=== PATIENT | male | born 1955 | race Caucasian/White ===

== ENCOUNTER → 2017-03-24 | Outpatient (CLI) | payer BC | END | disposition home or self-care (01) | LOC: GMAJ 16:52 | PROVIDERS: ATTEND Family Medicine | DX: N40.1 Benign prostatic hyperplasia with lower urinary tract symptoms (principal) ==

== ENCOUNTER → 2018-01-07 | Outpatient (CLI) | payer BC | LOC: GMAJ 14:06 | PROVIDERS: ATTEND Family Medicine | DX: R94.5 Abnormal results of liver function studies (principal) ==

== ENCOUNTER → 2018-01-08 | Outpatient (CLI) | payer BC ==
--- NOTE | 2018-01-08 18:22 | US ---
EXAM DESCRIPTION: Liver: ULTRASOUND. CLINICAL HISTORY: ELEVATED LFT COMPARISON: None. TECHNIQUE: Transabdominal scannin-dimensional and Doppler modes. FINDINGS: Gallbladder: No stones or sludge, but multiple echogenic polyps along the gallbladder wall. Largest polyps measuring 10 mm, 7 mm, and 6.1 mm. No fluid around the gallbladder. No wall thickening. 2.1 mm. Non-tender with transducer pressure. Common bile duct: caliber 3.6 mm within normal limits. Liver: Increased echogenicity; contour liver capsule smooth where seen. No fluid around the liver. Anechoic well-defined cyst with posterior acoustic features in the left lobe measuring 1.1 cm and 7.3 mm. Intrahepatic biliary ducts normal caliber. Doppler hepatopedal flow portal vein.. Long axis right lobe 19.5 cm. Pancreas: normal size and echogenicity. Duct not seen. Right kidney: long axis measures 12.5 cm. Normal Echogenicity. Normal cortical thickness. No hydronephrosis IMPRESSION: 1. Polyposis of the gallbladder. With 1 polyp greater than or equal to 1 cm, consider surgical consult. Alternatively, follow-up gallbladder ultrasound in 3 month interval. 2. Mild to moderate hepatomegaly with steatosis. Normal ducts and vascularity. No ascites. Common bile duct nondilated. 3. Normal ultrasound of the pancreas and right kidney. Electronically signed by: Michael Lieberman MD 01/08/2018 6:21 PM CDT
== END ==
LOC: US 07:49
PROVIDERS: ATTEND Family Medicine
DX: R94.5 Abnormal results of liver function studies (principal); K82.4 Cholesterolosis of gallbladder; R16.0 Hepatomegaly, not elsewhere classified; K76.0 Fatty (change of) liver, not elsewhere classified

== ENCOUNTER → 2018-07-06 | Outpatient (CLI) | payer BC | LOC: GMAJ 11:12 | PROVIDERS: ATTEND Family Medicine | DX: Z12.5 Encounter for screening for malignant neoplasm of prostate (principal) ==

== ENCOUNTER 2018-07-08 05:48 | Day surgery (SDC) | payer BC ==
[2018-07-08] MEDS ORDERED: PROPOFOL 200 MG/20 ML VIAL IV ONE (07:00)
[2018-07-08] MEDS ORDERED: PHENYLEPHRINE INJ 1ML 10 MG/ML VIAL ONE (07:00)
[2018-07-08] MEDS ORDERED: SODIUM CHLORIDE 0.9% 50 ML VIAL ONE (07:00)
[2018-07-08] MEDS ORDERED: LIDOCAINE 1% 10 ML VIAL INJ ONE (07:00)
[2018-07-08] MEDS ORDERED: DEXAMETHASONE INJ 10 MG/ML VIAL ONE (07:00)
[2018-07-08] MEDS ORDERED: LACTATED RINGERS 1,000 ML ONE (07:04)
--- NOTE | 2018-07-08 11:42 | OP ---
DATE OF PROCEDURE: 07/08/18 PREPROCEDURE DIAGNOSIS: 1. History of Fragoso's esophagus. 2. History of colonic polyps. Last colonoscopy over five years ago. POSTPROCEDURE DIAGNOSIS: 1. Gastric polyps. 2. Fragoso's esophagus. 3. Colonic polyp. PROCEDURE: 1. Upper endoscopy with biopsy. 2. Colonoscopy with snare polypectomy. SURGEON: Hira Vicente MD. SEDATION: Monitored anesthesia care. ESTIMATED BLOOD LOSS: Less than 5 mL. PROCEDURE: Informed consent was obtained prior to sedation. The preprocedure cardiopulmonary assessment was satisfactory. The patient was brought to the Endoscopy Suite and placed in the left lateral decubitus position. The patient was then sedated by the anesthesia team. The tip of the Olympus EGD scope was inserted into oropharynx and advanced under direct visualization across the cricopharyngeus muscle into the esophageal lumen. In the distal esophagus, there was Fragoso's esophagus. There was salmon-colored mucosa consistent with the patient's known history of Fragoso's esophagus. This ranged from 36 to 41 cm from the incisors. Biopsies were taken with cold forceps in four quadrants from 36, 39 and 41 cm from the incisors and sent for pathology In the stomach, there were multiple small gastric polyps. There was one large sessile polyp about 12 mm in size. Biopsies were taken with cold forceps for histology of this gastric polyp. Retroflexed view of the cardia showed no abnormalities. The endoscope was advanced into the duodenum where the first and second portions were normal. The endoscope was then withdrawn and he was repositioned for colonoscopy. Digital rectal and perianal exams were normal. The tip of the Olympus colonoscope was inserted into the rectum and advanced under direct visualization to the cecum as identified by the presence of the appendiceal orifice and ileocecal valve. Preparation of the colon was good. Upon reaching the cecum, the endoscope was slowly withdrawn. The entire colon was normal until the distal rectum where a 5 mm flat polyp was seen. This polyp was resected with snare polypectomy and sent for pathology. The endoscope was then withdrawn from the patient and the procedure terminated. RECOMMENDATION: 1. Discharge the patient home with escort. 2. Resume regular diet. 3. Continue present medications. 4. Surveillance colonoscopy in five years' time. 5. Followup in my office in two to three months. We may have to repeat the upper endoscopy in [place] for gastric polyp resection if it returns adenomatous. #[id number] MTDD
[2018-07-08 12:06] VITALS: BP 151/98; TEMP 96.3; O2SAT 98
== END 2018-07-08 12:00 | disposition home or self-care (01) ==
LOC: AMB 05:48
PROVIDERS: ATTEND Internal Medicine Gastroenterology
DX: K22.70 Barrett's esophagus without dysplasia (principal); K29.50 Unspecified chronic gastritis without bleeding; K31.7 Polyp of stomach and duodenum; K62.1 Rectal polyp; K21.9 Gastro-esophageal reflux disease without esophagitis; I10 Essential (primary) hypertension; E66.01 Morbid (severe) obesity due to excess calories; F17.200 Nicotine dependence, unspecified, uncomplicated; Z86.010 Personal history of colon polyps; Z79.899 Other long term (current) drug therapy
CPT/HCPCS: 00813; 43239; 45385; A4216; J1100; J3490; J7120

== ENCOUNTER → 2018-12-31 | Outpatient (CLI) | payer BC | LOC: GMAJ 10:40 | PROVIDERS: ATTEND Family Medicine | DX: N40.1 Benign prostatic hyperplasia with lower urinary tract symptoms (principal); E11.9 Type 2 diabetes mellitus without complications; I10 Essential (primary) hypertension ==

== ENCOUNTER → 2020-03-24 | Outpatient (CLI) | payer MEDICARE, OTHER | LOC: GMAJ 10:47 | PROVIDERS: ATTEND Family Medicine | DX: N40.1 Benign prostatic hyperplasia with lower urinary tract symptoms (principal); I10 Essential (primary) hypertension ==